=== PATIENT | female | born 1990 | race Caucasian/White ===

== ENCOUNTER 2020-06-19 07:48 | Day surgery (SDC) | payer BC ==
[2020-06-14 11:03] LABS: BASOPHILS # (AUTO) 0.1 X10'3 (0-0.2); EOSINOPHILS # (AUTO) 0.1 X10'3 (0-0.9); EOSINOPHILS % (AUTO) 1.5 % (0-6); LYMPHOCYTES # (AUTO) 2.4 X10'3 (1.1-4.8); LYMPHOCYTES % (AUTO) 28.4 % (21-51); MEAN CORPUSCULAR HEMOGLOBIN 27.7 PG (27.0-31.0); MEAN CORPUSCULAR HGB CONC 33.4 g/dL (33.0-36.5); MEAN CORPUSCULAR VOLUME 82.9 FL (78-98); MEAN PLATELET VOLUME 8.2 FL (7.4-10.4); MONOCYTES # (AUTO) 0.4 X10'3 (0-0.9); MONOCYTES % (AUTO) 4.6 % (2-12); NEUTROPHILS # (AUTO) 5.5 X10'3 (1.8-7.7); NEUTROPHILS % (AUTO) 64.5 % (42-75); PRE OP HEMATOCRIT 42.3 % (35.0-45.0); PRE OP HEMOGLOBIN 14.1 g/dL (12.0-16.0); PRE OP PLATELET COUNT 291 X10'3 (140-440); RED BLOOD COUNT 5.09 X10'6 (4.20-5.60); RED CELL DISTRIBUTION WIDTH 16.4 % (11.5-14.5)
[2020-06-14 11:20] LABS: ALBUMIN 3.9 G/DL (3.4-5.0); ALKALINE PHOSPHATASE 55 IU/L (46-116); BLOOD UREA NITROGEN 19 MG/DL (7-18); BUN/CREATININE RATIO 19.4 (6.6-38.0); CHLORIDE 103 MMOL/L (99-107); CREATININE 0.98 MG/DL (0.40-0.90); PRE OP ALT 25 U/L (30-65); PRE OP ANION GAP 9 (8-16); PRE OP AST 18 U/L (10-37); PRE OP BILIRUB, TOTAL 0.3 MG/DL (0.0-1.0); PRE OP GLUCOSE 91 MG/DL (70-104); PRE OP POTASSIUM 4.2 MMOL/L (3.4-5.1); PRE OP SODIUM 139 MMOL/L (135-145); TOTAL CARBON DIOXIDE 26.6 MMOL/L (24-32); TOTAL PROTEIN 7.9 G/DL (6.4-8.2); eGFR 67 ML/MIN
[2020-06-14 11:38] LABS: HCG SERUM QL NEGATIVE
[2020-06-19] VITALS (10 sets, daily range): BP systolic 105–131; BP diastolic 60–79
[~2020-06-19] VITALS: Ht 167.6 cm; Wt 119.0 kg
[~2020-06-19 07:48] MED LIST: NO HOME MEDS; ceFAZolin 2gm in dextrose, iso 50 ML IV ONE; famotidine 20mg tablet PO ONE; ringers solution, lacted 1,000 ML IV SCH
[2020-06-19] MEDS ORDERED: ROPIVAcaine 0.5% (5mg/ml) 30ml vial ONE ×2 (09:58→10:51)
[2020-06-19] MEDS ORDERED: ceFAZolin 1000mg inj ONE (09:58)
[2020-06-19] MEDS ORDERED: epiNEPHrine 1 mg/ml inj ONE (09:58)
[2020-06-19] MEDS ORDERED: gelatin sponge, absorbable (Gelfoam 100) sponge TP ONE (09:59)
[2020-06-19] MEDS ORDERED: Thrombin (Bovine) 5,000 unit vial TP ONE (09:59)
[2020-06-19] MEDS ORDERED: ketorolac trometh. 30mg/ml inj. ONE (10:44)
[2020-06-19] MEDS ORDERED: sevoflurane 250ml liquid IH ONE (10:44)
[2020-06-19] MEDS ORDERED: fentaNYL/PF 50MCG/1 ML 2ML syringe ONE (10:50)
[2020-06-19] MEDS ORDERED: LIDOcaine 2% (20mg/ml) 5ml vial ONE (10:51)
[2020-06-19] MEDS ORDERED: propofol inj 20 ML IV ONE (10:51)
[2020-06-19] MEDS ORDERED: midazolam 2 mg/2 ml injection ONE (10:51)
[2020-06-19] MEDS ORDERED: ondansetron/PF 4mg/2ml inj ONE ×2 (11:11→13:30)
[2020-06-19] MEDS ORDERED: dexamethasone sod phosphate 4mg/ml inj. ONE (11:11)
[2020-06-19] MEDS ORDERED: ringers solution, lacted 1,000 ML IV SCH (11:40)
[2020-06-19] MEDS ORDERED: morphine 2 MG/ML inj. syringe IV PRN (11:40)
[2020-06-19] MEDS ORDERED: hydrALAZINE 20mg/ml inj. IV PRN (11:40)
[2020-06-19] MEDS ORDERED: ondansetron/PF 4mg/2ml inj IV PRN (11:40)
[2020-06-19] MEDS ORDERED: labetalol 20mg/4ml (5mg/ml) syringe IV PRN (11:40)
[2020-06-19] MEDS ORDERED: fentaNYL/PF 50MCG/1 ML 2ML syringe IV PRN ×2 (11:40)
[2020-06-19] MEDS ORDERED: morphine 10mg/ml inj. ONE (13:04)
[2020-06-19] MEDS ORDERED: acetaminophen 1,000mg/100ml IV 100 ML IV ONE (13:12)
--- NOTE | 2020-06-19 13:35 | NUR ---
from or on [place] [facility] with dr. gonzales at side. vss, iv patent. no resp distress. dsg cdi to rt knee. ppp rt foot. toes warm with brisk cap refills.
[2020-06-19] MEDS: morphine 4 MG/ML inj SYRINge IV PRN ×2 (14:10→14:29)
--- NOTE | 2020-06-19 14:35 | NUR ---
BEING MEDICATED FOR PAIN WITH MORPHINE. DSG CDI. PULSES PALPABLE IN FOOT. TOES WARM. VSS
[2020-06-19] MEDS ORDERED: HYDROcodone/acetaminophen 5mg/325mg tablet PO ONE (15:10)
--- NOTE | 2020-06-19 15:40 | NUR ---
PAIN WAS STARTING TO GET BETTER. THEN CAME BACK AT A 9. MED THIS TIME WITH FENTANYL.
--- NOTE | 2020-06-19 16:10 | NUR ---
DOING VERY WELL. STILL HAS SOME DISCOMFORT BUT WANTS TO GO HOME TO HER [facility] AND FAMILY. VSS, IV OUT WITH CATH INTACT. GOT DRESSED. PULSE PALPABLE TO RT FOOT. TOES WARM, BRISK CAP REFILLS.
== END 2020-06-19 13:15 | disposition home or self-care (01) ==
LOC: PAS 07:48
PROVIDERS: ATTEND Orthopaedic Surgery
DX: M22.11 Recurrent subluxation of patella, right knee (principal); M25.561 Pain in right knee; Z79.899 Other long term (current) drug therapy; G89.18 Other acute postprocedural pain; E66.01 Morbid (severe) obesity due to excess calories; Z98.890 Other specified postprocedural states; Z86.32 Personal history of gestational diabetes; Z72.89 Other problems related to lifestyle
CPT/HCPCS: 27427; 29873; 36415; 64447; 76942; 80053; 82948; 84703; 85025; 93005; C1713; C1762; J0131; J0171; J0690; J1100; J1885; J2001; J2250; J2270; J2405; J2704; J3010; L1832; A4215; A4618; A6449; A7000; J2795; J7120